=== PATIENT | male | born 1940 | race Caucasian/White ===

== ENCOUNTER → 2016-11-17 | Day surgery (SDC) | payer MEDICARE, OTHER ==
[~2016-11-17] MED LIST: ACETAMINOPHEN 1000 MG/100 ML VIAL IV ONE; BUPIVACAINE/EPINEPHRINE 0.5% 50 ML VIAL ONE; CIPR500T2 PO; KETOROLAC TROMETHAMINE 30 MG/ML (IVP) VIAL IV PUSH ONE; LACTATED RINGER'S 1000 ML INJ 1,000 ML ONE; LIDOCAINE 1%/EPINEPHrine 1:100,000 SOLN 20 ML VIAL ONE; LISI10TA3 PO; METF500T PO; METHYLENE BLUE 100 MG/10 ML VIAL ONE; MIDAZOLAM HCL 2 MG/2 ML VIAL ONE; ONDANSETRON HCL 4 MG/2 ML VIAL IV PUSH ONE; PROPOFOL 200 MG/20 ML AMP IV ONE; ceFAZolin INJ 1,000 MG VIAL ONE
--- NOTE | 2016-11-17 10:28 | TN ---
cc: NABIL JACINTOTANVIR DATE OF SURGERY 11/17/2016 PREOPERATIVE DIAGNOSIS Recurrent pilonidal. 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 ANESTHESIA General SURGEON Dr. Jacinto INDICATIONS The patient is a pleasant 75-year-old gentleman who sometime last year had excised the recurrent pilonidal from the pathology. He subsequently had a recurrence. Intraoperative it was found when we were injecting the methylene blue dye into the opening of the pilonidal, that it actually communicated to it with the anus with gentle pressure. PROCEDURE The patient was taken to the operating room, placed in the supine position. After placed in the prone position, we placed tape on his gluteal cheeks to retracted. The area in question is prepped with Betadine. He has an opening that is just off the midline to the left side and it is at the top of an old scar from previous excision of his pilonidal. After prepping and draping, the lacrimal is placed and gentle pressure it actually goes down fairly deeply fairly easily. We then take an Angiocath and with gentle pressure fill the cavity with methylene blue. During this portion of the procedure, it is noted that he has some blue dye coming out it appears from the posterior portion of the anus. An elliptical incision was made over an inflamed area and we dissect down as deep as possible to excise the fistulous track. I had made a call to Dr. Milton, colorectal surgeon, to get his advice on treating this connection. It is somewhat unusual being 12 cm away from the anal canal. He advised me and suggested just unroofing the inflamed parts and he will see him later in the office and will follow him and consider doing a fistulotomy if needed depending on his recovery. After the intraoperative discussion, the area was then copiously irrigated with saline. I did place a Elijah at the bottom of the larger portion of the tract bringing it out through a separate stab wound incision to allow drainage. This was secured to the skin with a nylon. The elliptical incision is then loosely reapproximated with a nylon suture and I did place a [place] at the inferior aspect of this wound as well to facilitate drainage. He will be placed on antibiotics and narcotics. I will make a follow appointment to see me and Dr. Sundeep Milton. MD KAREEM Sanders/RAYMOND /10:07 AM /10:16 AM
== END | disposition home or self-care (01) ==
LOC: ESDC 07:18
PROVIDERS: ATTEND Surgery
DX: L05.01 Pilonidal cyst with abscess (principal)
CPT/HCPCS: 00300; 11772; 88304; J0131; J0690; J1885; J2250; J2405; J3010; J7120; 88305

== ENCOUNTER → 2016-11-29 | Outpatient (CLI) | payer MEDICARE, OTHER ==
[~2016-11-29] MED LIST changes: -ACETAMINOPHEN 1000 MG/100 ML VIAL IV ONE; -BUPIVACAINE/EPINEPHRINE 0.5% 50 ML VIAL ONE; -KETOROLAC TROMETHAMINE 30 MG/ML (IVP) VIAL IV PUSH ONE; -LACTATED RINGER'S 1000 ML INJ 1,000 ML ONE; -LIDOCAINE 1%/EPINEPHrine 1:100,000 SOLN 20 ML VIAL ONE; -METHYLENE BLUE 100 MG/10 ML VIAL ONE; -MIDAZOLAM HCL 2 MG/2 ML VIAL ONE; -ONDANSETRON HCL 4 MG/2 ML VIAL IV PUSH ONE; -PROPOFOL 200 MG/20 ML AMP IV ONE; -ceFAZolin INJ 1,000 MG VIAL ONE
[2016-11-29 11:19] LABS: AUTOMATED NEUTROPHIL # 4.3 TH/MM3 (1.8-7.7); BASOPHIL % 0.5 % (0.0-2.0); EOSINOPHIL # 0.3 TH/MM3 (0-0.4); EOSINOPHIL % 3.8 % (0.0-4.0); HEMATOCRIT 39.4 % (39.0-51.0); HEMO FLAGS DIFF FINAL; LYMPH % 24.7 % (9.0-44.0); LYMPHOCYTE # 1.7 TH/MM3 (1.0-4.8); MEAN CELL VOLUME 87.2 FL (80.0-100.0); MEAN CORPUSCULAR HEMOGLOBIN 30.2 PG (27.0-34.0); MEAN CORPUSCULAR HGB CONC 34.6 % (32.0-36.0); MONO % 7.9 % (0.0-8.0); NEUT % 63.1 % (16.0-70.0); PLATELET COUNT 292 TH/MM3 (150-450); RED BLOOD COUNT 4.52 MIL/MM3 (4.50-5.90); RED CELL DISTRIBUTION WIDTH 13.4 % (11.6-17.2); WHITE BLOOD COUNT 6.8 TH/MM3 (4.0-11.0)
[2016-11-29 11:34] LABS: BLOOD, URINE NEG (NEG); GLUCOSE,URINE NEG (NEG); KETONE, URINE NEG (NEG); NITRITE,URINE NEG (NEG); URINE COLOR YELLOW (YELLW/STRAW)
[2016-11-29 11:42] LABS: COMMENT (UR) CULT NOT INDICATED; CULTURE IF INDICATED CULT NOT INDICATED
[2016-11-29 11:54] LABS: ALT (GPT) 41 U/L (12-78); ANION GAP 6 MEQ/L (5-15); AST (GOT) 28 U/L (15-37); BICARBONATE 27.7 MEQ/L (21.0-32.0); BLOOD UREA NITROGEN 20 MG/DL (7-18); CHLORIDE 106 MEQ/L (98-107); GLOMERULAR FILTRATION RATE 54 ML/MIN (>89); GLUCOSE,FASTING 124 MG/DL (74-99); POTASSIUM 3.8 MEQ/L (3.5-5.1); SODIUM (NA) 140 MEQ/L (136-145)
[2016-11-29 11:56] LABS: ALKALINE PHOSPHATASE 63 U/L (45-117); TOTAL BILIRUBIN ADULT 0.4 MG/DL (0.2-1.0)
--- NOTE | 2016-11-29 11:57 | RADRPT ---
EXAM DATE/TIME: 11/29/2016 11:21 [facility] COMPARISON: No previous studies available for comparison. INDICATIONS : Evaluate for pneumonia, pneumothorax and communicable diseases. pre-op for colon surgery MEDICAL HISTORY : None. SURGICAL HISTORY : None. ENCOUNTER: Initial ACUITY: 1 day PAIN SCORE: 0/10 LOCATION: chest FINDINGS: PA and lateral views of the chest demonstrate the lungs to be symmetrically aerated without evidence of mass, infiltrate or effusion. The cardiomediastinal contours are unremarkable. Osseous structure s are intact. CONCLUSION: No acute intrathoracic disease. Mitch Wells MD on November 29, 2016 at 11:55 Board Certified Radiologist. This report was verified electronically.
== END ==
LOC: CPRE 10:26
PROVIDERS: ATTEND Colon & Rectal Surgery
DX: K60.3 Anal fistula (principal); Z01.812 Encounter for preprocedural laboratory examination; Z01.818 Encounter for other preprocedural examination
CPT/HCPCS: 36415; 71020; 80053; 81001; 85025

== ENCOUNTER → 2016-12-02 | Day surgery (SDC) | payer MEDICARE, OTHER ==
[~2016-12-02] VITALS: Ht 177.8 cm; Wt 89.8 kg
[~2016-12-02] MED LIST changes: +ACETAMINOPHEN 1000 MG/100 ML VIAL IV ONE; +BUPIVACAINE HCL PF 0.5% 30 ML VIAL ONE; +CHLORHEXIDINE GLUCONATE 2 % 1 PACK (2 CLOTHS) TOPICAL PRN; +DO NOT ADM ANY ANTICOAGULANT DRUGS PRN; +INSULIN HUMAN REGULAR 1,000 UNITS/10 ML VIAL SQ PRN; +LACTATED RINGER'S 1000 ML IV PRN; +LIDOCAINE 0.5%/EPINEPHrine 1:200,000 SOLN 50 ML VIAL INFIL ONE; +LIDOCAINE 0.5%/EPINEPHrine 1:200,000 SOLN 50 ML VIAL ONE; +LIDOCAINE 1%/EPINEPHrine 1:100,000 SOLN 50 ML VIAL ONE; +METOPROLOL TARTRATE 25 MG TAB PO PRN; +NEOSTIGMINE 3 MG/3 ML SYR IV ONE; +ONDANSETRON HCL 4 MG/2 ML VIAL IV PUSH ONE; +POVIDONE IODINE 5% (ANTISEPSIS KIT) 4 APPLICATIONS EACH NARE PRN; +PROPOFOL 200 MG/20 ML AMP IV ONE; +SODIUM CHLORID 0.9% 500 ML IV PRN; +ceFAZolin 2 GM PREMIX 50 ML ONE; +ceFAZolin INJ 1,000 MG VIAL ONE; +fentaNYL CITRATE 250 MCG/5 ML AMP ONE
[2016-12-02 12:51] VITALS: BP 146/76; PULSE 62; RESP 18; TEMP 97.8; O2SAT 96
[2016-12-02 17:29] VITALS: BP 146/67; PULSE 64; RESP 18; TEMP 97.6; O2SAT 98
--- NOTE | 2016-12-03 13:22 | MP ---
cc: BERNARD MILTON,TANVIR JACINTO,NABIL Marie M.D. DATE OF SURGERY 12/02/2016 PREOPERATIVE DIAGNOSIS Fistula in ano POSTOPERATIVE DIAGNOSIS Fistula in ano PROCEDURE Exam under anesthesia and fistulotomy. ANESTHESIA General endotracheal SURGEON Dr. Milton SUSPENDER CUTTER Dr. Temple ESTIMATED BLOOD LOSS Minimal OPERATIVE FINDINGS This patient has had a complex history. Over the last couple of months, he was seen at [facility] and underwent abscess drainage by Dr. Hill or Meghann. After that, it subsequently recurred rapidly and they wanted to reoperate him, however, he went to Dr. Jacinto. Dr. Jacinto saw him, thought this was a pilonidal cyst and operated on him and at the time of that surgery, injected methylene blue and noted that there was a fistula in ano. For this reason, he called me from the OR and I saw him and scheduled him for surgery. At surgery today, up in the left posterior buttocks cleft area was Dr. Jacinto's incision. A probe was placed distally toward the anal canal and an internal opening was found posteriorly. Fistulotomy was done. OPERATIVE TECHNIQUE The patient was placed on table in the prone position. After adequate general endotracheal anesthesia, the area was prepped and draped in the usual manner. A Killian bivalve retractor and then the Hill-Brown retractor was inserted into the anal canal and the internal canal was palpated. No definite crypt internal opening could be seen. The probe was placed in the pilonidal region that had been previously opened by Dr. Jacinto and tracked down posteriorly right to the crypt area in the left posterior anal canal and the internal opening was easily identified. Fistulotomy was done with electrocautery and then the area was debrided of fibrous tissue and curetted clean. Superficial external sphincter was divided, as well as some internal sphincter, but the majority of the sphincter and anorectal ring was intact. Hemostasis was maintained throughout with electrocautery and then the hemorrhoidal area at the internal opening was sutured with several [id number] 3-0 chromic sutures. Next, Monsel's solution was placed in the base and dressings were applied. Sponge, needle and a counts were reported as correct. Estimated blood loss was minimal. The patient tolerated the procedure well, left the operating room in good condition. MD KARISSA Sheffield /4:21 PM /1:15 PM
== END | disposition home or self-care (01) ==
LOC: HSDC 12:10
PROVIDERS: ATTEND Colon & Rectal Surgery
DX: K60.3 Anal fistula (principal)
CPT/HCPCS: 00902; 46275; 86850; 86900; 86901; J0131; J2405; J2710; J3010; J7120; J0690